=== PATIENT | female | born 1955 | race Caucasian/White ===

== ENCOUNTER 2023-11-11 07:31 | Day surgery (SDC) | payer MEDICARE, OTHER ==
[2023-11-11] MEDS ORDERED: Sodium Bicarbonate 2.5 MEQ/5 ML SDV ONE (07:39)
[2023-11-11] MEDS ORDERED: Lidocaine 1% PF 5 ML VIAL ONE (07:39)
[2023-11-11 08:06] VITALS: BP 156/67; TEMP 98.7
[2023-11-11] MEDS ORDERED: Iopamidol-M 300 61% 15 ML VIAL ONE (12:41)
== END 2023-11-11 10:00 | disposition home or self-care (01) ==
LOC: CSHRAD 07:31
PROVIDERS: ATTEND Neurological Surgery
PROC: B01BYZZ Fluoroscopy of Spinal Cord using Other Contrast (ICD-10-PCS; principal; 2023-11-11)
DX: M47.12 Other spondylosis with myelopathy, cervical region (principal); M54.16 Radiculopathy, lumbar region; M48.062 Spinal stenosis, lumbar region with neurogenic claudication; I10 Essential (primary) hypertension; E11.9 Type 2 diabetes mellitus without complications; F41.9 Anxiety disorder, unspecified; Z90.710 Acquired absence of both cervix and uterus; Z90.89 Acquired absence of other organs; Z79.899 Other long term (current) drug therapy; Z79.84 Long term (current) use of oral hypoglycemic drugs
CPT/HCPCS: 62305; 72126; 72132; Q9967